=== PATIENT | female | born 1955 | race Caucasian/White ===

== ENCOUNTER → 2024-01-19 | Outpatient (CLI) | payer MEDICARE, BC ==
[2024-01-19 14:24] LABS: FREE T4 1.42 ng/dl (0.89-1.76)
== END | disposition home or self-care (01) ==
LOC: LAB 13:37
PROVIDERS: Student in an Organized Health Care Education/Training Program; ATTEND Internal Medicine Endocrinology, Diabetes & Metabolism
DX: E06.3 Autoimmune thyroiditis (principal)

== ENCOUNTER → 2024-06-16 | Outpatient (CLI) | payer MEDICARE, BC ==
[2024-06-16 12:15] LABS: FREE T4 1.3 ng/dl (0.89-1.76)
== END | disposition home or self-care (01) ==
LOC: LAB 11:31
PROVIDERS: Student in an Organized Health Care Education/Training Program; ATTEND Internal Medicine Endocrinology, Diabetes & Metabolism
DX: E06.3 Autoimmune thyroiditis (principal)

== ENCOUNTER → 2024-12-28 | Outpatient (CLI) | payer MEDICARE, BC ==
[2024-12-28 18:10] LABS: BUN 27.0 mg/dl (9-23); FREE T4 1.53 ng/dl (0.89-1.76); LDL CHOLESTEROL 125.0 mg/dL (9-159); SGPT/ALT 16.0 U/L (5-49)
== END | disposition home or self-care (01) ==
LOC: LAB 17:18
PROVIDERS: Student in an Organized Health Care Education/Training Program; ATTEND Internal Medicine Endocrinology, Diabetes & Metabolism
DX: E78.2 Mixed hyperlipidemia (principal); E06.3 Autoimmune thyroiditis